=== PATIENT | female | born 1935 ===

== ENCOUNTER 2016-09-10 18:42 | Emergency (ER) | payer MEDICARE, BC ==
--- NOTE | ~2016-09-10 | ER ---
PATIENT'S NAME: PAT [facility] AGE: 81 Y [address] ROOM: [place] [id number] LOCATION: [facility] ADMIT DATE: 09/10/2016 ER/Outpatient Report DISCHARGE DATE: 09/10/2016 FAMILY PHYSICIAN: Khanh May MD ATTENDING PHYSICIAN: Herbie Correa Admission date and time documented in medical record. I saw the patient at 1900 hours. CHIEF COMPLAINT: Ground-level fall. HISTORY OF PRESENT ILLNESS: The patient is an 81-year-old female, who was mopping the kitchen floor, tripped over a chair, and fell to the wooden floor. She hit the right facial forehead on the floor and suffered a large contusion. Had no loss of consciousness. Has no confusion. Alert and oriented here in the emergency department. This happened about 30 minutes prior to presenting to the emergency room by private vehicle. Has a little bit of a contusion to her left knee, otherwise no other injuries. No recent coughs, colds, flus, fever, chills, or sweats. No lightheadedness or dizziness. Little bit of frontal headache. No eyes, ears, nose, throat, neck, or spine pain. No chest pain, shortness of breath. No abdominal pain, nausea, vomiting, or diarrhea. No urinary frequency, urgency, or dysuria. No joint or muscle swelling, redness, or pain other than the left anterior knee. No skin eruptions or rash. No history of neuro changes, psych issues, endocrine problems other than some intermittent vertigo at times. HOME MEDICATIONS: See attached medication list. ALLERGIES: PENICILLIN. SOCIAL HISTORY: Nonsmoker, nondrinker. SIGNIFICANT PAST MEDICAL HISTORY: Hypertension, carotid occlusive disease, hypothyroidism, deep vein thrombosis, vertigo, dyslipidemia. OPERATIONS: Right carotid surgery, hysterectomy, appendectomy, breast biopsy, cataract extraction. PATIENT'S NAME: PAT [facility] AGE: 81 Y [address] ROOM: [place] [address] LOCATION: [facility] ADMIT DATE: 09/10/2016 ER/Outpatient Report DISCHARGE DATE: 09/10/2016 FAMILY PHYSICIAN: Khanh May MD ATTENDING PHYSICIAN: Herbie Corrae REVIEW OF SYSTEMS: All systems reviewed by me are negative with the exception of those discussed in the history of present illness. PHYSICAL EXAMINATION: VITAL SIGNS: Temperature 98.5 tympanic, pulse 70, respirations 16, blood pressure 179/80, O2 sat on room air is 94%. Jori Coma Scale was 15. HEAD: Normocephalic. The patient has a large soft tissue contusion, right facial forehead with some ecchymosis. No open wounds, lacerations, or bleeding. EYES: Extraocular muscles intact. PERRL. Sclerae and conjunctivae clear, nonicteric. No hyphema. No subconjunctival hemorrhages. EARS: Clear TMs bilaterally. No blood behind the eardrums or in the canal. NOSE: Clear. No epistaxis. THROAT: Clear. Mucous membranes moist. TEETH/JAW: Intact. NECK: No nuchal rigidity. No findings of adenopathy. SPINE: Negative. LUNGS: Clear. Good air flow. No rales, rhonchi, or wheezes. HEART: Regular. Pulses are palpable. ABDOMEN: Soft, nondistended, nontender. Good bowel tones. No organomegaly or abnormal mass palpable. EXTREMITIES: No peripheral edema, cyanosis, or deformity. NEURO: Neurovascularly intact. SKIN: Clear. No skin eruptions or rash other than the right forehead contusion. LABORATORY DATA AND X-RAYS: CT scan of the head showed no intracranial bleed, midline shift, mass effect, or skull fracture. CT scan of the cervical spine showed no acute fracture or subluxation. Did have some degenerative changes. All CT scans read by Radiology, see dictated and transcribed report. IMPRESSION: 1. Ground-level fall with soft tissue contusion, swelling, right facial forehead. No other injuries were found. 2. Hypertension. 3. Hypothyroidism. 4. Dyslipidemia. 5. History of carotid occlusive disease. PLAN: The patient dismissed home. Observation. Activity as tolerated. Continue present home medications. Ice or cold packs to facial contusion, swelling area intermittently as needed. Continue present home medications and care. Fluids, diet as tolerated. Follow up with personal physician as needed. PATIENT'S NAME: PAT [facility] AGE: 81 Y [address] ROOM: [place] [address] LOCATION: [facility] ADMIT DATE: 09/10/2016 ER/Outpatient Report DISCHARGE DATE: 09/10/2016 FAMILY PHYSICIAN: Khanh May MD ATTENDING PHYSICIAN: Herbie Correa Discussion ensued with the patient and her regarding my findings and recommendations, they understand. MD TASHI RON/modl /[id number] d: 09/10/16 2146 t: 09/11/16 1809, OUTPATIENT REPORT
== END 2016-09-10 20:06 ==
LOC: GACC 18:42
DX: S00.83XA Contusion of other part of head, initial encounter (principal); I10 Essential (primary) hypertension; E03.9 Hypothyroidism, unspecified; E78.5 Hyperlipidemia, unspecified; I65.29 Occlusion and stenosis of unspecified carotid artery; I82.409 Acute embolism and thrombosis of unspecified deep veins of unspecified lower extremity; Z88.0 Allergy status to penicillin; Z98.49 Cataract extraction status, unspecified eye; Z79.82 Long term (current) use of aspirin; Z79.899 Other long term (current) drug therapy; Z90.49 Acquired absence of other specified parts of digestive tract; Z90.710 Acquired absence of both cervix and uterus; W01.190A Fall on same level from slipping, tripping and stumbling with subsequent striking against furniture, initial encounter; Y92.89 Other specified places as the place of occurrence of the external cause; Y93.E5 Activity, floor mopping and cleaning